=== PATIENT | female | born 1965 | race Caucasian/White ===

== ENCOUNTER 2021-11-12 07:10 | Outpatient (CLI) | payer BC, SELFPAY | END 2021-11-12 07:11 | disposition home or self-care (01) | LOC: RAD 07:11 | PROVIDERS: PCP Family Medicine; Visit Provider Family Medicine | DX: M54.16 Radiculopathy, lumbar region (principal); M51.36 Other intervertebral disc degeneration, lumbar region | CPT/HCPCS: 64483; J1100; Q9966 ==

== ENCOUNTER 2022-03-26 11:08 | Emergency (ER) | payer BC, SELFPAY ==
[2022-03-26 11:18] VITALS: BP 123/88; PULSE 72; RESP 16; TEMP 36.6; O2SAT 98; BMI 25.3
--- NOTE | 2022-03-26 11:25 | CRLHL7_ITS ---
For Patients: As a result of the Century Cures Act, medical imaging exams and procedure reports are released immediately into your electronic medical record. You may view this report before your referring provider. If you have questions, please contact your health care provider. INDICATION: Pain COMPARISON: None available. FINDINGS: Ultrasound of the venous drainage of the right lower extremity shows no evidence of deep venous thrombosis. There is normal antegrade flow from the posterior tibial and popliteal veins superiorly through the common femoral vein. There is normal augmentation and compressibility of these veins. The left common femoral vein is widely patent. IMPRESSION: No evidence of deep venous thrombosis on ultrasound examination of the right lower extremity. Dictated by David Stinson MD @ 03/26/2022 12:42:36 PM (Electronically Signed)
--- NOTE | 2022-03-26 11:35 | ED_ITS ---
HPI - General Adult General Time Seen by Provider: 11:36 Date Seen: 03/26/22 Chief complaint: Extremity Pain/Injury, Lower Stated complaint: Pain on right leg Time Seen by Provider: 03/26/22 11:25 Source: patient Mode of arrival: ambulatory Limitations: no limitations History of Present Illness HPI narrative: Patient is a 56-year-old white female who has a history of factor 5 laden mutation, has had a DVT in the past and complains of right leg pain since yesterday when she was at work. Noted some pain behind her right leg into her calf and ankle on right side. She has had some back pain as well, has had some injections but typically her radicular symptoms are on the left. She is otherwise quite healthy. Does have hypertension takes gabapentin and Wellbut rin. She denies trauma injury, bowel or bladder changes, fever chills perineal numbness. Related Data Home Medications Medication Instructions Recorded Confirmed bupropion HCl 300 mg 24 hr tablet, 300 mg PO DAILY 03/26/22 03/26/22 extended release gabapentin 300 mg capsule 600 mg PO HS 03/26/22 03/26/22 lisinopril 20 mg tablet 20 mg PO DAILY 03/26/22 03/26/22 Allergies Allergy/AdvReac Type Severity Reaction Status Date / Time Penicillins Allergy Mild Rash Verified 03/26/22 11:24 Sulfa (Sulfonamide Allergy Mild yeast Verified 03/26/22 11:24 Antibiotics) infection Review of Systems Status of ROS: Reports: 6 or more systems reviewed and unremarkable except as noted in History and below [facility] Medical History Factor 5 Leiden mutation, heterozygous Social History Smoking Status: Current some day smoker Do you use any of these nicotine containing products: None Second hand tobacco smoke exposure: No How often do you have a drink containing alcohol: 4 or more times a week How many standard drinks containing alcohol do you have on a typical day: 1 or 2 How often do you have six or more drinks on one occasion: Never AUDIT-C Alcohol total score: 4 Non-prescribed substance use: denies use service: No Exam Narrative: Exam Narrative: Objective: Patient's vital signs unremarkable, O2 sats 90% on room air Lower extremities show negative straight leg raise bilaterally negative Homans sign. Good peripheral perfusion right lower extremity no palpable venous cords No edema or swelling Const: Vital Signs, click to edit/add: Vital Signs - 24 hr 03/26/22 11:18 03/26/22 12:13 Temperature 97.9 F Pulse Rate [Right Pulse Oximeter] 72 78 Respiratory Rate 16 Blood Pressure [Ri ght Upper Arm] 123/88 122/83 Pulse Oximetry 98 97 Oxygen Delivery Me thod Room Air Room Air Course Vital Signs Vital signs: Initial Vital Signs Temperature 97.9 F 03/26/22 11:18 Temperature Source Temporal Artery Scan 03/26/22 11:18 Pulse Rate 72 03/26/22 11:18 Respiratory Rate 16 03/26/22 11:18 Blood Pressure 123/88 03/26/22 11:18 Blood Pressure Mean 99 03/26/22 11:18 Blood Pressure Position Sitting 03/26/22 11:18 Pulse Oximetry 98 03/26/22 11:18 Oxygen Delivery Method 03/26/22 11:18 Vital Signs Temperature 97.9 F 03/26/22 11:18 Pulse Rate 72 03/26/22 11:18 Respiratory Rate 16 03/26/22 11:18 Blood Pressure 123/88 03/26/22 11:18 Pulse Oximetry 98 03/26/22 11:18 Oxygen Delivery Method 03/26/22 11:18 Temperature 97.9 F 03/26/22 11:18 Pulse Rate 78 03/26/22 12:13 Respiratory Rate 16 03/26/22 11:18 Blood Pressure 122/83 03/26/22 12:13 Pulse Oximetry 97 03/26/22 12:13 Oxygen Delivery Method 03/26/22 12:13 Medical Decision Making [facility] [place] Narrative Medical decision making narrative: Patient is a factor 5 Leiden mutation, is not on any anticoagulants anticoagulants and does not take aspirin. I think because she has right lower extremity pain would rule out DVT, will get an ultrasound. If this is negative may be reasonable take an anti-inflammatory or steroid in case this is a radicular symptom. Will see how the ultrasound turns out. She was comfortable this assessment and plan Addendum: The patient's ultrasound of the leg is read as negative, recommend anti-inflammatory such as ibuprofen 3 times a day over the next few days, follow-up with primary care as needed or not improving. She was comfortable this plan will follow up as directed. This seems more like an inflammatory issue that of radicular issue and she has not any symptoms on the right in the past. Discharge Plan Discharge Clinical Impression: Pain in right leg, Factor 5 Leiden mutation, heterozygous Patient Disposition: Home, Self-Care Condition: Stable Additional Instructions: Light activity, gentle stretching, ice to the back of the knee and upper lower leg, ibuprofen 600 mg 3 times a day for the next several days, follow-up with primary care in 4-5 days. Sooner problems or concerns. Prescriptions: No Action bupropion HCl 300 mg tablet extended release 24 hr 300 mg PO DAILY gabapentin 300 mg capsule 600 mg PO HS Label Comments: TAKE 1-2 CAPSULES BY MOUTH AT BEDTIME NEEDED FOR HOT FLASHES/SLEEP lisinopril 20 mg tablet 20 mg PO DAILY Follow Up/Referrals: Mairza Siegel MD [Primary Care Provider] - Stand Alone Forms: [employer] Info Instructions
[2022-03-26 12:13] VITALS: BP 122/83; PULSE 78; O2SAT 97
== END 2022-03-26 12:14 | disposition home or self-care (01) ==
PROVIDERS: Emergency Provider Family Medicine; PCP Family Medicine
DX: M79.661 Pain in right lower leg (principal); D68.51 Activated protein C resistance
CPT/HCPCS: 93971; 99283

== ENCOUNTER 2022-09-03 13:45 | Outpatient (RCR) | payer BC, SELFPAY | END 2022-12-04 23:59 | disposition home or self-care (01) | PROVIDERS: PCP Family Medicine; Visit Provider Orthopaedic Surgery | DX: M46.1 Sacroiliitis, not elsewhere classified (principal); Z51.89 Encounter for other specified aftercare | CPT/HCPCS: 97012; 97110; 97140; 97162 ==

== ENCOUNTER 2023-02-11 13:00 | Outpatient (RCR) | payer BC, SELFPAY | END 2023-06-11 23:59 | disposition home or self-care (01) | PROVIDERS: PCP Family Medicine; Visit Provider Physician Assistant | DX: Z98.890 Other specified postprocedural states (principal); Z51.89 Encounter for other specified aftercare | CPT/HCPCS: 97110; 97140; 97161 ==

== ENCOUNTER 2024-06-10 07:38 | Outpatient (CLI) | payer BC, SELFPAY ==
--- NOTE | 2024-06-10 08:50 | P.ANES_ITS ---
Anesthesia Charges Start Date/Time Anesthesia Start Date: 06/10/24 Anesthesia Start Time: 08:29 Stop Date/Time Anesthesia Stop Date: 06/10/24 Anesthesia Stop Time: 08:49 Coding CPT Codes CPT Codes: BRADFORD LWR INTST NDSC NOS - 63505 ([id number]) P2 - PATIENT W/MILD SYST DISEASE, QK - BROOMCORN GRADER 2-4 CNCRNT ANES PROC, QX - ORE ROASTER SVC W/ MD MED DIRECTION
--- NOTE | 2024-06-10 08:50 | W.ANESCHARGE ---
Anesthesia Charges Start Date/Time Anesthesia Start Date: 06/10/24 Anesthesia Start Time: 08:29 Stop Date/Time Anesthesia Stop Date: 06/10/24 Anesthesia Stop Time: 08:49 Coding CPT Codes CPT Codes: BRADFORD LWR INTST NDSC NOS - 87881 ([id number]) P2 - PATIENT W/MILD SYST DISEASE, QK - ASSEMBLY MACHINE TOOL SETTER 2-4 CNCRNT ANES PROC, QX - WOOD TYPE CUTTER SVC W/ MD MED DIRECTION
--- NOTE | 2024-06-10 09:10 | P.ANES_ITS ---
Anesthesia Charges Start Date/Time Anesthesia Start Date: 06/10/24 Anesthesia Start Time: 08:29 Stop Date/Time Anesthesia Stop Date: 06/10/24 Anesthesia Stop Time: 08:49 Coding CPT Codes CPT Codes: BRADFORD LWR INTST NDSC NOS - 03619 ([id number]) QK - EDGER AUTOMATIC 2-4 CNCRNT BRADFORD PROC, QX - SPLUNK CONSULTANT SVC W/ MD MED DIRECTION, P2 - PATIENT W/MILD SYST DISEASE
--- NOTE | 2024-06-10 09:10 | W.ANESCHARGE ---
Anesthesia Charges Start Date/Time Anesthesia Start Date: 06/10/24 Anesthesia Start Time: 08:29 Stop Date/Time Anesthesia Stop Date: 06/10/24 Anesthesia Stop Time: 08:49 Coding CPT Codes CPT Codes: BRADFORD LWR INTST NDSC NOS - 48349 ([id number]) QK - PANEL FLOW MACHINE OPERATOR 2-4 CNCRNT BRADFORD PROC, QX - PARTITION ASSEMBLY MACHINE OPERATOR SVC W/ MD MED DIRECTION, P2 - PATIENT W/MILD SYST DISEASE
== END 2024-06-10 07:39 | disposition home or self-care (01) ==
PROVIDERS: PCP Family Medicine; Visit Provider Internal Medicine Gastroenterology
DX: Z12.11 Encounter for screening for malignant neoplasm of colon (principal); D12.0 Benign neoplasm of cecum; D12.2 Benign neoplasm of ascending colon; Z86.0101 Personal history of adenomatous and serrated colon polyps
CPT/HCPCS: 00811; 45380; 45385; 88305; J2704